=== PATIENT | male | born 1985 | race Hispanic/Latino ===

== ENCOUNTER 2016-10-11 12:37 | Emergency (ER) | payer SELFPAY ==
[2016-10-11] MEDS ORDERED: Nitrostat 0.4 MG (ED) SL ONE ×3 (13:03→13:43)
[2016-10-11] MEDS ORDERED: BABY ASPIRIN 81 MG CHEW PO ONE (13:03)
[2016-10-11 13:15] LABS: BASOPHIL % 0.6 % (0.0-0.4); Eosinophil % 1.6 % (0.00-5.0); Granulocytes % 58.4 % (36.0-66.0); Lymphocytes % 32.2 % (24.0-44.0); Mean Cell Volume 88.3 fl (78-100); Mean Corpuscular Hemoglobin 29.5 pg (26-32); Mean Platelet Volume 10.6 fl (6-9.5); Monocytes % 7.2 % (0.0-12.0); Platelet Count 238 K/mm3 (150-450); Red Blood Count 5.29 M/mm3 (4.1-5.6); Red Cell Distribution Width 14.1 % (11.5-14.0); White Blood Count 6.8 K/mm3 (4.0-10.5)
[2016-10-11] MEDS ORDERED: Sodium Chloride 0.9% 1000 ML 1,000 ML IV SCH (13:15)
[2016-10-11 13:26] LABS: ALBUMIN 3.9 g/dL (3.4-5.0); ALKALINE PHOSPHATASE 98 U/L (46-116); ANION GAP 18.1 MEQ/L (5-15); BILIRUBIN,TOTAL 0.3 mg/dL (0.2-1.0); BLOOD UREA NITROGEN 15 mg/dL (9-20); CHLORIDE 98 mEq/L (98-107); Carbon Dioxide 24.8 mEq/L (21-32); Glucose 145 MG/DL (70-110); Potassium 3.5 mEq/L (3.5-5.1); SGOT/AST 48 U/L (15-37); SGPT/ALT 69 U/L (12-78); SODIUM 137 mEq/L (136-145); Total Protein 8.4 gm/dL (6.4-8.2)
[2016-10-11 13:27] VITALS: O2SAT 94
--- NOTE | 2016-10-11 13:38 | ERPHSYRPT ---
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 PAIN WORSE WITH DEEP BREATH AND DID VOMIT ORACLE ADF CONSULTANT. SKIN WARMA ND DRY. EMS HAD TRANSLATING GERI ON PHONE FOR PARTIAL HX FROM PT. EKG NON FUNCTIONING IN ER AND EKG MACHINE WAS SWITCHED OUT. Physician History: chest pain for 3-4 hours. c/o vomiting. hx of diabetes and hypertension, recently came from [place] but forget his medicine so has not been taking his meds for 2-3 weeks Timing/Duration: today Activities at Onset: none Quality: aching Location: substernal Chest Pain Radiation: no radiation Severity of Pain-Max: none Severity of Pain-Current: none Modifying Factors: Improves With: nothing Associated Symptoms: nausea, vomiting Prior Chest Pain/Cardiac Workup: no prior chest pain, no prior cardiac workup Nitro Today/Relief: 0.4 mg x 1 Aspirin Treatment Today: 81 mg x 1 Allergies/Adverse Reactions: No Known Drug Allergies Allergy (Unverified 10/11/16 12:58) - Review of Systems Constitutional: No Fever, No Chills Eyes: No Symptoms Ears, Nose, & Throat: No Symptoms Respiratory: No Cough, No Dyspnea Cardiac: Chest Pain, No Edema, No Syncope Abdominal/Gastrointestinal: Nausea, Vomiting, No Abdominal Pain, No Diarrhea Genitourinary Symptoms: No Dysuria Musculoskeletal: No Back Pain, No Neck Pain Skin: No Rash Neurological: No Dizziness, No Focal Weakness, No Sensory Changes Psychological: No Symptoms Endocrine: No Symptoms All Other Systems: Reviewed and Negative - Past Medical History Pertinent Past Medical History: Yes Cardiac History: Hypertension Endocrine Medical History: Diabetes Type II - Past Surgical History Past Surgical History: Yes - Social History Smoking Status: Never smoker Exposure to second hand smoke: No Drug Use: none - Nursing Vital Signs Temperature: 98.5 F Temperature Source: Oral Pulse Rate: 86 Respiratory Rate: 18 Pain Intensity: 9 - Physical Exam General Appearance: no apparent distress, alert Eye Exam: PERRL/EOMI, eyes nml inspection Ears, Nose, Throat Exam: normal ENT inspection, moist mucous membranes Neck Exam: normal inspection, non-tender, supple, full range of motion Respiratory Exam: normal breath sounds, lungs clear, No respiratory distress Cardiovascular Exam: regular rate/rhythm, normal heart sounds Gastrointestinal/Abdomen Exam: soft, No tenderness, No mass Back Exam: normal inspection, No CVA tenderness, No vertebral tenderness Extremity Exam: normal inspection, normal range of motion Neurologic Exam: alert, oriented x 3, cooperative, normal mood/affect, sensation nml, No motor deficits Skin Exam: normal color, warm, dry SpO2: 94 Oxygen Delivery: Room Air - Course Nursing assessment & vital signs reviewed: Yes EKG Interpreted by Me: Sinus Rhythm - Radiology Exams Chest X-ray Interpretation: Reviewed by me, Negative Ordered Tests: Active Orders 24 hr Category Date Time Status Demolition Expert STAT Care 10/11/16 13:03 Active EKG-ER Only STAT Care 10/11/16 13:03 Active EKG-ER Only STAT Care 10/11/16 13:52 Active IV Insertion STAT Care 10/11/16 13:03 Active Oxygen-ED Only NASAL CANNULA 2 lpm Care 10/11/16 13:03 Completed CHEST 1 VIEW (PORTABLE) Stat Exams 10/11/16 13:04 Taken CBC W DIFF Stat Lab 10/11/16 13:03 Completed CMP Stat Lab 10/11/16 13:03 Completed TROPONIN Q3H Lab 10/11/16 13:15 Completed TROPONIN Q3H Lab 10/11/16 16:15 Ordered TROPONIN Q3H Lab 10/11/16 19:15 Ordered TROPONIN Q3H Lab 10/11/16 22:15 Ordered TROPONIN Q3H Lab 10/12/16 01:15 Ordered Medication Summary Generic Name Dose Route Start Last Admin Trade Name Freq PRN Reason Stop Dose Admin Sodium Chloride 1,000 mls @ 50 mls/hr 10/11/16 13:15 10/11/16 13:44 Sodium Chloride 0.9% 1000 Ml IV 11/10/16 13:14 50 mls/hr .Q20H ZAINAB Administration Nitroglycerin/Dextrose 250 mls @ 1.5 mls/hr 10/11/16 13:47 10/11/16 13:48 Ntg 0.2mg/Ml In D5w Glass IV 11/10/16 13:46 5 mcg/min .Q24H PRN 1.5 mls/hr CHEST PAIN Administration Protocol 5 MCG/MIN Discontinued Medications Generic Name Dose Route Start Last Admin Trade Name Freq PRN Reason Stop Dose Admin Aspirin 81 mg 10/11/16 13:03 10/11/16 13:25 Baby Aspirin 81 Mg Chew PO 10/11/16 13:04 Not Given STAT ONE Morphine Sulfate 4 mg 10/11/16 13:47 10/11/16 13:49 Morphine Sulfate 4 Mg Inj IV 10/11/16 13:48 4 mg STAT ONE Administration Morphine Sulfate Confirm 10/11/16 13:46 Morphine Sulfate 4 Mg Inj Administered 10/11/16 13:47 Dose 4 mg .ROUTE .STK-MED ONE Nitroglycerin 0.4 mg 10/11/16 13:03 10/11/16 13:25 Nitrostat 0.4 Mg (Ed) SL 10/11/16 13:04 0.4 mg STAT ONE Administration Nitroglycerin Confirm 10/11/16 13:19 Nitrostat 0.4 Mg (Ed) Administered 10/11/16 13:20 Dose 0.4 mg SL .STK-MED ONE Nitroglycerin Confirm 10/11/16 13:43 Nitrostat 0.4 Mg (Ed) Administered 10/11/16 13:44 Dose 0.4 mg SL .STK-MED ONE Ondansetron HCl 4 mg 10/11/16 13:52 Zofran 4 Mg/2 Ml Vial IV 10/11/16 13:53 STAT ONE Ondansetron HCl Confirm 10/11/16 13:52 Zofran 4 Mg/2 Ml Vial Administered 10/11/16 13:53 Dose 4 mg .ROUTE .STK-MED ONE Lab/Rad Data: Laboratory Result Diagrams 10/11/16 13:03 10/11/16 13:03 Laboratory Results 10/11/16 10/11/16 10/11/16 Range/Units 13:15 13:03 13:03 WBC 6.8 (4.0-10.5) K/mm3 RBC 5.29 (4.1-5.6) M/mm3 Hgb 15.6 (12.5-18.0) gm/dl Hct 46.7 (42-50) % MCV 88.3 (78-100) fl MCH 29.5 (26-32) pg MCHC 33.4 (32-36) g/dl RDW 14.1 H (11.5-14.0) % Plt Count 238 (150-450) K/mm3 MPV 10.6 H (6-9.5) fl Gran % 58.4 (36.0-66.0) % Lymphocytes % 32.2 (24.0-44.0) % Monocytes % 7.2 (0.0-12.0) % Eosinophils % 1.6 (0.00-5.0) % Basophils % 0.6 (0.0-0.4) % Basophils # 0.04 (0-0.4) Sodium 137 (136-145) mEq/L Potassium 3.5 (3.5-5.1) mEq/L Chloride 98 (98-107) mEq/L Carbon Dioxide 24.8 (21-32) mEq/L Anion Gap 18.1 H (5-15) MEQ/L BUN 15 (9-20) mg/dL Creatinine 0.77 (0.55-1.30) mg/dl Estimated GFR > 60 ML/MIN Glucose 145 H (70-110) MG/DL Calcium 8.2 L (8.5-10.1) mg/dL Total Bilirubin 0.3 (0.2-1.0) mg/dL AST 48 H (15-37) U/L ALT 69 (12-78) U/L Alkaline Phosphatase 98 (46-116) U/L Troponin I 0.617 H* (0.000-0.056) ng/ml Serum Total Protein 8.4 H (6.4-8.2) gm/dL Albumin 3.9 (3.4-5.0) g/dL - Progress Progress: improved Air Movement: good Blood Culture(s) Obtained: No Antibiotics given: No Discussed with DrManish: Other (hospitalist service at [facility]- Dr Bailey) Will see patient in: other ([facility]) Counseled pt/family regarding: lab results, diagnosis, need for follow-up, rad results - Departure Time of Disposition: 13:40 Departure Disposition: Transfer ([facility]) Clinical Impression: Non-ST elevation HI (NSTEMI) Condition: Stable Critical Care Time: Yes Critical Care Time(excluding separately billable procedures): 30-74 minutes Referrals: DOCTOR,NO FAMILY [Primary Care Provider] - Instructions: Heart Attack
[2016-10-11] MEDS ORDERED: Sodium Chloride 0.9% 1000 ML 1,000 ML ONE (13:43)
[2016-10-11] MEDS ORDERED: MORPHINE SULFATE 4 MG INJ ONE (13:46)
[2016-10-11] MEDS ORDERED: MORPHINE SULFATE 4 MG INJ IV ONE (13:47)
[2016-10-11] MEDS ORDERED: Ntg 0.2MG/Ml in D5W GLASS*** 250 ML IV ONE (13:47)
[2016-10-11] MEDS ORDERED: Ntg 0.2MG/Ml in D5W GLASS*** 250 ML IV PRN (13:47)
[2016-10-11] MEDS ORDERED: Zofran 4 MG/2 ML VIAL IV ONE (13:52)
[2016-10-11] MEDS ORDERED: Zofran 4 MG/2 ML VIAL ONE (13:52)
[2016-10-11 14:18] VITALS: BP 145/85; PULSE 108
--- NOTE | 2016-10-11 21:43 | XRAY ---
Indication: Chest pain. Comparison: None Portable apical lordotic chest slightly underinflated with a few calcified granulomas. No focal infiltrate, consolidation, or large effusion. Heart is not enlarged. Vascularity normal. Bony thorax intact. Impression: Nonacute chest. Evidence for old granulomatous disease.
== END 2016-10-11 14:35 | disposition short-term general hospital (02) ==
LOC: ED 12:37 → EDBD 12:37 → ED 14:35
DX: I21.4 Non-ST elevation (NSTEMI) myocardial infarction (principal); R77.8 Other specified abnormalities of plasma proteins
CPT/HCPCS: 36000; 36415; 71010; 80053; 84484; 85025; 93005; 93041; 96360; 96361; 96365; 96374; 96375; 99285; J2270; J2405; A9270-GY

== ENCOUNTER 2016-10-23 00:18 | Emergency (ER) | payer SELFPAY ==
[2016-10-23] MEDS ORDERED: PROTONIX 40 MG IV IV ONE ×2 (00:47→00:59)
[2016-10-23] MEDS ORDERED: Zofran 4 MG/2 ML VIAL IV ONE (00:47)
[2016-10-23] MEDS ORDERED: Sodium Chloride 0.9% 1000 ML 1,000 ML IV STA (00:47)
[2016-10-23 00:59] LABS: BASOPHIL % 0.5 % (0.0-0.4); Eosinophil % 1.8 % (0.00-5.0); Granulocytes % 57.4 % (36.0-66.0); Lymphocytes % 29.5 % (24.0-44.0); Mean Cell Volume 90.5 fl (78-100); Mean Platelet Volume 10.5 fl (6-9.5); Monocytes % 10.8 % (0.0-12.0); Platelet Count 311 K/mm3 (150-450); Red Blood Count 4.44 M/mm3 (4.1-5.6); Red Cell Distribution Width 13.3 % (11.5-14.0)
[2016-10-23] MEDS ORDERED: Sodium Chloride 0.9% 1000 ML 1,000 ML ONE (00:59)
[2016-10-23] MEDS ORDERED: Zofran 4 MG/2 ML VIAL ONE (00:59)
--- NOTE | 2016-10-23 01:01 | ERPHSYRPT ---
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 ALERT/ ORIENTED - PLEASANT AFFECT. SKIN PWD - NO RASH/INJURY. RESPS EASY - NON- LABORED fsbs: 113 Physician History: PATIENT WITH HISTORY OF TYPE 2 DIABETES AND HYPERTENSION, AFTER EATING TONIGHT DEVELOPED ONSET OF CHEST PAIN , VOMITING X 2 AND HEADACHE. PATIENT EVALUATED AT [facility] ON 10/11/2016 FOR COMPLAINTS OF CHEST PAIN AND TRANSFERRED TO [facility] WITH DIAGNOSIS OF NON STEMI- TROPONIN 0.617. 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 Timing/Duration: today Severity: moderate Modifying Factors: Improves With: nothing Associated Symptoms: nausea Allergies/Adverse Reactions: No Known Drug Allergies Allergy (Unverified 10/11/16 12:58) Home Medications: Aspirin 81 mg PO DAILY 10/23/16 [History] Lisinopril [Zestril] 10 mg PO DAILY 10/23/16 [History] Metformin HCl 500 mg [Glucophage 500 MG] 500 mg PO BID 10/23/16 [History] Hx Tetanus, Diphtheria Vaccination/Date Given: No Hx Influenza Vaccination/Date Given: No Hx Pneumococcal Vaccination/Date Given: No Immunizations Up to Date: No - Review of Systems Constitutional: No Fever, No Chills Eyes: No Symptoms Ears, Nose, & Throat: No Symptoms Respiratory: No Symptoms, No Cough, No Dyspnea Cardiac: Chest Pain, No Edema, No Syncope Abdominal/Gastrointestinal: Abdominal Pain, Nausea, No Vomiting, No Diarrhea Genitourinary Symptoms: No Dysuria Musculoskeletal: No Symptoms, No Back Pain, No Neck Pain Skin: No Symptoms, No Rash Neurological: Headache, No Dizziness, No Focal Weakness, No Sensory Changes Psychological: No Symptoms Endocrine: No Symptoms All Other Systems: Reviewed and Negative - Past Medical History Pertinent Past Medical History: Yes Cardiac History: Hypertension Endocrine Medical History: Diabetes Type II - Past Surgical History Past Surgical History: Yes - Social History Smoking Status: Never smoker Exposure to second hand smoke: No Drug Use: none Patient Lives Alone: No - Nursing Vital Signs Nursing Vital Signs: Initial Vital Signs Temperature 99.0 F Temperature Source Oral Pulse Rate 60 Respiratory Rate 16 Blood Pressure [] 99/52 Pain Intensity 0 - Physical Exam General Appearance: no apparent distress, alert Eye Exam: PERRL/EOMI, eyes nml inspection Ears, Nose, Throat Exam: normal ENT inspection, TMs normal, pharynx normal, moist mucous membranes Neck Exam: normal inspection, non-tender, supple, full range of motion Respiratory Exam: normal breath sounds, lungs clear, No respiratory distress Cardiovascular Exam: regular rate/rhythm, normal heart sounds, normal peripheral pulses Gastrointestinal/Abdomen Exam: soft, normal bowel sounds, other (NONTENDER), No tenderness, No mass Back Exam: normal inspection, normal range of motion, No CVA tenderness, No vertebral tenderness Extremity Exam: normal inspection, normal range of motion, pelvis stable Neurologic Exam: alert, oriented x 3, cooperative, normal mood/affect, nml cerebellar function, nml station & gait, sensation nml, No motor deficits Skin Exam: normal color, warm, dry, No rash Lymphatic Exam: No adenopathy SpO2 Interpretation: normal SpO2: 96 Oxygen Delivery: Room Air - Course EKG Interpreted by Me: RATE, Sinus Rhythm, NORMAL AXIS - Radiology Exams Chest X-ray Interpretation: Interpreted by me (ELEVATION OF RIGHT HEMIDIAPHRAM, NO INFILTRATES) - CT Exams Head CT Interpretation: Discussed w/radiologist, No/Intracranial Hemorrhag Ordered Tests: Active Orders 24 hr Category Date Time Status EKG-ER Only STAT Care 10/23/16 00:47 Active IV Insertion STAT Care 10/23/16 00:47 Active CHEST 1 VIEW (PORTABLE) Stat Exams 10/23/16 00:48 Taken HEAD WITHOUT CONTRAST [CT] Stat Exams 10/23/16 00:56 Taken AMYLASE Stat Lab 10/23/16 00:50 Completed CBC W DIFF Stat Lab 10/23/16 00:50 Completed CMP Stat Lab 10/23/16 00:50 Completed LIPASE Stat Lab 10/23/16 00:50 Completed TROPONIN Stat Lab 10/23/16 00:57 Completed UA Stat Lab 10/23/16 00:48 Ordered Urine Triage Profile Stat Lab 10/23/16 00:48 Ordered Medication Summary Discontinued Medications Generic Name Dose Route Start Last Admin Trade Name Freq PRN Reason Stop Dose Admin Aspirin 324 mg 10/23/16 03:40 10/23/16 03:48 Baby Aspirin 81 Mg Chew PO 10/23/16 03:41 324 mg STAT ONE Administration Aspirin Confirm 10/23/16 03:46 Baby Aspirin 81 Mg Chew Administered 10/23/16 03:47 Dose 324 mg .ROUTE .STK-MED ONE Enoxaparin Sodium 80 mg 10/23/16 03:39 10/23/16 03:48 Enoxaparin Sodium SQ 10/23/16 03:40 80 mg 1XONLY ONE Administration Enoxaparin Sodium Confirm 10/23/16 03:46 Enoxaparin Sodium Administered 10/23/16 03:47 Dose 80 mg SQ .STK-MED ONE Fentanyl Citrate Confirm 10/23/16 01:02 Sublimaze 100 Mcg/2 Ml Administered 10/23/16 01:03 Dose 100 mcg .ROUTE .STK-MED ONE Fentanyl Citrate 100 mcg 10/23/16 01:27 10/23/16 01:28 Sublimaze 100 Mcg/2 Ml IV 10/23/16 01:28 100 mcg STAT ONE Administration Sodium Chloride 1,000 mls @ 250 mls/hr 10/23/16 00:47 10/23/16 01:07 Sodium Chloride 0.9% 1000 Ml IV 10/23/16 04:46 250 mls/hr .Q4H STA Administration Sodium Chloride Confirm 10/23/16 00:59 Sodium Chloride 0.9% 1000 Ml Administered 10/23/16 01:00 Dose 1,000 mls @ ud .ROUTE .STK-MED ONE Nitroglycerin 1 gm 10/23/16 02:45 10/23/16 02:53 Nitro-Bid 2% Ud Packets TOP 10/23/16 02:46 1 gm STAT ONE Administration Nitroglycerin Confirm 10/23/16 02:50 Nitro-Bid 2% Ud Packets Administered 10/23/16 02:51 Dose 1 gm .ROUTE .STK-MED ONE Ondansetron HCl 4 mg 10/23/16 00:47 10/23/16 01:07 Zofran 4 Mg/2 Ml Vial IV 10/23/16 00:48 4 mg STAT ONE Administration Ondansetron HCl Confirm 10/23/16 00:59 Zofran 4 Mg/2 Ml Vial Administered 10/23/16 01:00 Dose 4 mg .ROUTE .STK-MED ONE Pantoprazole Sodium 40 mg 10/23/16 00:47 10/23/16 01:07 Protonix 40 Mg Iv IV 10/23/16 00:48 40 mg STAT ONE Administration Pantoprazole Sodium Confirm 10/23/16 00:59 Protonix 40 Mg Iv Administered 10/23/16 01:00 Dose 40 mg IV .STK-MED ONE Lab/Rad Data: Laboratory Result Diagrams 10/23/16 00:50 10/23/16 00:50 Laboratory Results 10/23/16 10/23/16 10/23/16 Range/Units 00:57 00:50 00:50 WBC 10.0 (4.0-10.5) K/mm3 RBC 4.44 (4.1-5.6) M/mm3 Hgb 13.3 (12.5-18.0) gm/dl Hct 40.2 L (42-50) % MCV 90.5 (78-100) fl MCH 30.0 (26-32) pg MCHC 33.1 (32-36) g/dl RDW 13.3 (11.5-14.0) % Plt Count 311 (150-450) K/mm3 MPV 10.5 H (6-9.5) fl Gran % 57.4 (36.0-66.0) % Lymphocytes % 29.5 (24.0-44.0) % Monocytes % 10.8 (0.0-12.0) % Eosinophils % 1.8 (0.00-5.0) % Basophils % 0.5 (0.0-0.4) % Basophils # 0.05 (0-0.4) Sodium 139 (136-145) mEq/L Potassium 3.3 L (3.5-5.1) mEq/L Chloride 101 (98-107) mEq/L Carbon Dioxide 25.8 (21-32) mEq/L Anion Gap 15.3 H (5-15) MEQ/L BUN 14 (9-20) mg/dL Creatinine 0.73 (0.55-1.30) mg/dl Estimated GFR > 60 ML/MIN Glucose 123 H (70-110) MG/DL Calcium 9.2 (8.5-10.1) mg/dL Total Bilirubin 0.3 (0.2-1.0) mg/dL AST 29 (15-37) U/L ALT 75 (12-78) U/L Alkaline Phosphatase 101 (46-116) U/L Troponin I 0.196 H* (0.000-0.056) ng/ml Serum Total Protein 8.3 H (6.4-8.2) gm/dL Albumin 4.1 (3.4-5.0) g/dL Amylase 45 (25-115) U/L Lipase 215 (73-393) U/L - Progress Progress: improved Discussed with .: Other (DISCUSSED WITH DR AL AT 0325 ACCEPTS TRANSFER TO [facility]IA [facility]) - Departure Time of Disposition: 04:00 Departure Disposition: Transfer Clinical Impression: NON-STEMI Condition: Stable Critical Care Time: No Referrals: DOCTOR,NO FAMILY [Primary Care Provider] -
[2016-10-23] MEDS ORDERED: SUBLIMAZE 100 MCG/2 ML ONE (01:02)
[2016-10-23 01:23] LABS: ALBUMIN 4.1 g/dL (3.4-5.0); ALKALINE PHOSPHATASE 101 U/L (46-116); ANION GAP 15.3 MEQ/L (5-15); BILIRUBIN,TOTAL 0.3 mg/dL (0.2-1.0); BLOOD UREA NITROGEN 14 mg/dL (9-20); CHLORIDE 101 mEq/L (98-107); Carbon Dioxide 25.8 mEq/L (21-32); Glucose 123 MG/DL (70-110); LIPASE 215 U/L (73-393); Potassium 3.3 mEq/L (3.5-5.1); SGOT/AST 29 U/L (15-37); SGPT/ALT 75 U/L (12-78); SODIUM 139 mEq/L (136-145); Total Protein 8.3 gm/dL (6.4-8.2)
[2016-10-23] MEDS ORDERED: SUBLIMAZE 100 MCG/2 ML IV ONE (01:27)
[2016-10-23] MEDS ORDERED: NITRO-BID 2% UD PACKETS TOP ONE (02:45)
[2016-10-23] MEDS ORDERED: NITRO-BID 2% UD PACKETS ONE (02:50)
[2016-10-23] MEDS ORDERED: ENOXAPARIN SODIUM SQ ONE ×2 (03:39→03:46)
[2016-10-23] MEDS ORDERED: BABY ASPIRIN 81 MG CHEW PO ONE (03:40)
[2016-10-23] MEDS ORDERED: BABY ASPIRIN 81 MG CHEW ONE (03:46)
[2016-10-23 04:16] VITALS: BP 99/52; PULSE 60
[2016-10-23 05:14] VITALS: O2SAT 96
--- NOTE | 2016-10-23 09:07 | XRAY ---
Indication: Cough, emesis, and headache. Comparison: October 11, 2016. Portable apical lordotic chest again demonstrates scattered calcified granulomas. Remaining heart, lungs, and bony thorax normal.
--- NOTE | 2016-10-23 09:09 | XRAY ---
Indication: Headache and emesis. Hypertension and diabetes. Multiple contiguous axial images obtained through the head without contrast. Comparison: None Normal appearing brain parenchyma, ventricles, and bony calvarium. Visualized paranasal sinuses and mastoid air cells are pneumatized and clear. Impression: Normal CT head without contrast exam. Comment: Preliminary interpretation was made by [facility]. No discrepancy. CT DI 69.11
== END 2016-10-23 04:24 | disposition home or self-care (01) ==
LOC: ED 00:18
DX: I21.4 Non-ST elevation (NSTEMI) myocardial infarction (principal); I22.2 Subsequent non-ST elevation (NSTEMI) myocardial infarction; I10 Essential (primary) hypertension; E11.9 Type 2 diabetes mellitus without complications
CPT/HCPCS: 36415; 70450; 71010; 80053; 82150; 83690; 84484; 85025; 93005; 96360; 96361; 96372; 96374; 96375; 99285; J1650; J2405; J3010; A9270-GY